=== PATIENT | male | born 1990 | race Caucasian/White ===

== ENCOUNTER 2023-07-14 18:01 | Inpatient (IN) | payer BC, MEDICAID ==
[~2023-07-14] VITALS: Ht 182.9 cm; Wt 87.7 kg
[2023-07-14] MEDS ORDERED: HALOPERIDOL 5 MG TABLET PO PRN (21:45)
[2023-07-15] MEDS: ZOLPIDEM TARTRATE 10 MG TABLET PO PRN (00:27)
[2023-07-15 00:30] VITALS: BP 104/63; PULSE 64; TEMP 97.5; O2SAT 99
[2023-07-15] MEDS: INFLUENZA VIRUS VACCINE QVS 2023-24 (6MO+)/PF 60 MCG/0.5 ML SYRINGE IM. ONE (00:45)
[2023-07-15] MEDS: LORazepam 2 MG TABLET PO PRN (07:25)
[2023-07-15 08:19] VITALS: BP 115/75; PULSE 69; RESP 18; TEMP 97.7; O2SAT 98
[2023-07-15] MEDS ORDERED: NICOTINE 14 MG/24 HOUR PATCH TD PRN (08:45)
[2023-07-15] MEDS ORDERED: PETROLATUM,WHITE 28 GM JELLY TP PRN (08:45)
[2023-07-15] MEDS ORDERED: LOPERAMIDE HCL 2 MG CAPSULE PO PRN (08:45)
[2023-07-15] MEDS ORDERED: ACETAMINOPHEN 325 MG TABLET PO PRN (08:45)
[2023-07-15] MEDS ORDERED: MAG HYDROX/ALUMINUM HYD/SIMETH ES 30 ML SUSPENSION UDCUP PO PRN (08:45)
[2023-07-15] MEDS ORDERED: CloNIDine HCL 0.1 MG TABLET PO PRN (08:45)
[2023-07-15] MEDS ORDERED: ALBUTEROL SULFATE HFA 90 MCG/PUFF 8 GM INHALER IH PRN (08:45)
[2023-07-15] MEDS ORDERED: IBUPROFEN 400 MG TABLET PO PRN (08:45)
[2023-07-15] MEDS ORDERED: DOCUSATE SODIUM 100 MG CAPSULE PO PRN (08:45)
[2023-07-15] MEDS ORDERED: ONDANSETRON HCL 4 MG TABLET PO PRN (08:45)
[2023-07-15] MEDS: NICOTINE 14 MG/24 HOUR PATCH TD SCH (08:57)
[2023-07-15] MEDS: NICOTINE POLACRILEX 2 MG LOZENGE PO PRN (16:20)
[2023-07-15] MEDS: ZIPRASIDONE HCL 40 MG CAPSULE PO SCH (17:43)
[2023-07-15] MEDS: PRAZOSIN HCL 1 MG CAPSULE PO SCH (20:24)
[2023-07-15 21:12] VITALS: BP 107/85; PULSE 66; RESP 18; TEMP 97.6; O2SAT 99
[2023-07-16 08:02] LABS: EOSINOPHILS % (AUTO) 2.1 % (1.0-6.0); HEMATOCRIT 45.4 % (41-53); HEMOGLOBIN 15.4 g/dL (13.5-17.5); LYMPHOCYTES # (AUTO) 1.5 K/uL (1.0-4.8); LYMPHOCYTES % (AUTO) 33.4 % (22.0-44.0); MEAN CORPUSCULAR HEMOGLOBIN 31.1 pg (26.0-34.0); MEAN CORPUSCULAR HGB CONC 33.9 G/dL (31.0-37.0); MEAN CORPUSCULAR VOLUME 92 fL (80-100); MONOCYTES # (AUTO) 0.4 K/uL (0.1-1.0); MONOCYTES % (AUTO) 9.9 % (2.0-9.0); NEUTROPHILS # (AUTO) 2.4 K/uL (1.8-7.7); NEUTROPHILS % (AUTO) 53.6 % (40.0-70.0); PLATELET COUNT (AUTO) 223 K/uL (150-450); RED BLOOD CELL COUNT(AUTO) 4.95 MIL/uL (4.50-5.90); RED CELL DISTRIBUTION WIDTH 13.1 % (11.5-14.5); WHITE BLOOD COUNT (AUTO) 4.5 K/uL (4.5-11.0)
[2023-07-16 08:08] LABS: HEMOGLOBIN A1C 5.2 % (3.8-5.6)
[2023-07-16 08:23] LABS: ALANINE AMINOTRANSFERASE 25 U/L (12-78); ALBUMIN 3.8 g/dL (3.4-5.0); ALKALINE PHOSPHATASE 52 U/L (46-116); ANION GAP 8 mmol/L (8-16); ASPARTATE AMINOTRANSFERASE 20 U/L (15-37); BILIRUBIN,TOTAL 1.9 mg/dL (0.1-1.0); CARBON DIOXIDE 28 mmol/L (22-29); CHLORIDE 101 mmol/L (98-107); CHOL/HDL RATIO 2.6 (4.2-7.3); CHOLESTEROL 183 mg/dL (131-200); CREATININE 0.81 mg/dL (0.60-1.30); FREE T4 (FREE THYROXINE) 1.06 ng/dL (0.76-1.46); GLOMERULAR FILTR. RATE CALC > 60 mL/min (>60); GLUCOSE,RANDOM 97 mg/dL (70-110); HDL CHOLESTEROL 71 mg/dL (40-60); LDL CHOL (CALC.) 93 mg/dL (0-130); POTASSIUM 3.9 mmol/L (3.5-5.1); SODIUM SERUM 137 mmol/L (136-145); TOTAL PROTEIN, SERUM 7.5 g/dL (6.4-8.2); TRIGLYCERIDES 96 mg/dL (15-150); UREA NITROGEN, BLOOD 6 mg/dL (7-18)
[2023-07-16 08:51] VITALS: BP 130/71; PULSE 95; RESP 20; TEMP 98.3; O2SAT 100
[2023-07-16] MEDS: ZIPRASIDONE HCL 40 MG CAPSULE PO SCH (12:04)
[2023-07-16] MEDS: NICOTINE 14 MG/24 HOUR PATCH TD SCH (14:30)
[2023-07-16] MEDS: LORazepam 2 MG/ML VIAL IM PRN (14:41)
[2023-07-16] MEDS ORDERED: ZIPRASIDONE HCL 40 MG CAPSULE PO SCH (16:30)
[2023-07-16 20:17] VITALS: BP 120/77; PULSE 86; RESP 16; TEMP 97.8; O2SAT 97
[2023-07-16] MEDS: NICOTINE POLACRILEX 2 MG LOZENGE PO PRN (21:45)
[2023-07-17 08:07] VITALS: BP 123/82; PULSE 78; RESP 16; TEMP 97.5; O2SAT 98
[2023-07-17 12:32] VITALS: RESP 16
[2023-07-17] MEDS: NAPROXEN 250 MG TABLET PO PRN (12:32)
[2023-07-17 13:32] VITALS: RESP 16
[2023-07-17 20:09] VITALS: BP 122/67; PULSE 69; RESP 18; TEMP 98.3; O2SAT 97
[2023-07-18 08:31] VITALS: BP 117/68; PULSE 64; RESP 17; TEMP 97.1; O2SAT 99
[2023-07-18] MEDS: NICOTINE 21 MG/24 HOUR PATCH TD SCH (09:34)
[2023-07-18 16:35] VITALS: RESP 18; O2SAT 99
[2023-07-18 17:35] VITALS: RESP 17; O2SAT 99
[2023-07-18 20:43] VITALS: BP 127/75; PULSE 71; RESP 18; TEMP 98.4; O2SAT 97
[2023-07-19 09:08] LABS: APPEARANCE,URINE CLEAR (CLEAR); BILIRUBIN,URINE NEGATIVE (NEGATIVE); COLOR,URINE COLORLESS (YELLOW); GLUCOSE, URINE (UA) NEGATIVE (NEGATIVE); KETONES,URINE NEGATIVE (NEGATIVE); LEUKOCYTE ESTERASE ,URINE NEGATIVE (NEGATIVE); NITRATE,URINE NEGATIVE (NEGATIVE); OCCULT BLOOD,URINE NEGATIVE (NEGATIVE); PH,URINE 6.5 (5.0-8.0); PH,URINE DRUG SCREEN 6.5 (5.0-8.0); PROTEIN,URINE NEGATIVE (NEGATIVE); SPECIFIC GRAVITIY, URINE 1.005 (1.003-1.030); UROBILINOGEN,URINE <=1.0 mg/dL (<=1.0)
[2023-07-19 09:16] LABS: ALCOHOL, URINE DRUG SCREEN NEGATIVE (NEGATIVE); AMPHET/METH SCREEN,URINE NEGATIVE (NEGATIVE); BARBITURATE SCREEN, URINE NEGATIVE (NEGATIVE); BENZODIAZEPINES SCREEN,URINE NEGATIVE (NEGATIVE); CANNABINOID SCREEN,URINE POSITIVE (NEGATIVE); COCAINE SCREEN,URINE NEGATIVE (NEGATIVE); METHADONE SCREEN, URINE NEGATIVE (NEGATIVE); OPIATE SCREEN,URINE NEGATIVE (NEGATIVE); PHENCYCLIDINE SCREEN,URINE NEGATIVE (NEGATIVE)
[2023-07-19 10:44] VITALS: BP 127/79; PULSE 77; RESP 16; TEMP 98.4; O2SAT 98
[2023-07-19 16:50] VITALS: RESP 16; O2SAT 98
[2023-07-19] MEDS: MAGNESIUM HYDROXIDE SUSPENSION 30 ML UDCUP PO PRN (16:51)
[2023-07-19 17:50] VITALS: RESP 16; O2SAT 98
[2023-07-19 21:34] VITALS: BP 129/87; PULSE 89; RESP 16; TEMP 97.6; O2SAT 99
[2023-07-20 09:11] VITALS: BP 131/83; PULSE 80; RESP 18; TEMP 97.9; O2SAT 100
[2023-07-20] MEDS: LORazepam 1 MG TABLET PO PRN (18:15)
[2023-07-20 21:08] VITALS: BP 137/84; PULSE 98; RESP 17; TEMP 98.1; O2SAT 98
[2023-07-20] MEDS: MELATONIN 5 MG TABLET PO PRN (23:14)
[2023-07-21 08:37] VITALS: BP 134/78; PULSE 91; RESP 18; TEMP 97.6; O2SAT 98
[2023-07-21 12:36] VITALS: RESP 18; O2SAT 98
[2023-07-21 13:36] VITALS: RESP 17; O2SAT 98
[2023-07-21 22:12] VITALS: BP 126/79; PULSE 84; RESP 18; TEMP 97.6; O2SAT 98
[2023-07-21] MEDS: GuaiFENesin/D-METHORPHAN [SUGAR-FREE] 200-20MG/10 ML SYRUP UDCUP PO PRN (23:14)
[2023-07-22] MEDS: NICOTINE POLACRILEX 2 MG LOZENGE PO PRN (08:10)
[2023-07-22 08:17] VITALS: BP 139/78; PULSE 100; RESP 17; TEMP 98; O2SAT 100
[2023-07-22] MEDS: HydrOXYzine PAMOATE 25 MG CAPSULE PO PRN (15:54)
[2023-07-22 20:11] VITALS: BP 128/71; PULSE 75; RESP 18; TEMP 98; O2SAT 98
[2023-07-23 09:15] VITALS: BP 148/99; PULSE 73; RESP 18; TEMP 98.1; O2SAT 97
[2023-07-23] MEDS: NAPROXEN 500 MG TABLET PO PRN (12:35)
[2023-07-23 13:35] VITALS: RESP 17
[2023-07-23 20:03] VITALS: BP 145/99; PULSE 81; RESP 20; TEMP 97.6; O2SAT 98
== END 2023-07-24 15:41 | disposition home or self-care (01) | DRG 885 ==
LOC: B2S 23:31
PROVIDERS: ADMIT Psychiatry & Neurology Child & Adolescent Psychiatry; ATTEND Psychiatry & Neurology Child & Adolescent Psychiatry
PROC: GZHZZZZ Group Psychotherapy (ICD-10-PCS; principal; 2023-07-20)
DX: F31.63 Bipolar disorder, current episode mixed, severe, without psychotic features (principal); F41.9 Anxiety disorder, unspecified; G47.00 Insomnia, unspecified; F17.200 Nicotine dependence, unspecified, uncomplicated; F19.10 Other psychoactive substance abuse, uncomplicated
CPT/HCPCS: 80053; 80061; 80307; 81003; 83036; 84439; 84443; 85025; J2060; Q9967